=== PATIENT | male | born 1960 | race Caucasian/White ===

== ENCOUNTER → 2023-04-18 | Outpatient (CLI) | payer BC ==
--- NOTE | 2023-04-18 09:59 | MM ---
Reason for Exam: Clinical finding. Baseline mammogram. Patient History: Sister had breast cancer at or over age 50. Prior Study Comparison: Patient's first Mammogram. Tissue Density: The breast tissue is heterogeneously dense. This may lower the sensitivity of mammography. Findings: Analyzed By CAD. Extensive flame-shaped density throughout the central portion of the right breast with dendritic appearance suggesting extensive, asymmetric gynecomastia on the right. There may be minimal early changes of gynecomastia behind the left nipple. No significant mass or other discrete abnormality is seen. Overall Assessment: Incomplete: need additional imaging evaluation, BI-RAD 0 Management: Diagnostic Breast Ultrasound of the right breast. Electronically signed and approved by: Arpit Valdivia M.D. Radiologist
--- NOTE | 2023-04-18 10:39 | USB ---
Reason for Exam: Clinical finding. Patient History: Sister had breast cancer at or over age 50. Findings: The whole breast of the right breast, the axilla of the right breast and the retroareolar of both breasts were scanned. A complete US of all four quadrants of the breast , axilla, and retro-areolar region were reviewed. Images of the subareolar left breast for comparison purposes. No solid or cystic masses are identified. There is subareolar gynecomastia noted on the right. Overall Assessment: Benign, BI-RAD 2 Management: Clinical Management of the right breast in 1 year. For benign gynecomastia on the right. Results were given to the patient verbally at the time of exam. Electronically signed and approved by: Arpit Valdivia M.D. Radiologist
== END | disposition home or self-care (01) ==
LOC: RADMAMWWP 09:17
PROVIDERS: ATTEND Family Medicine
DX: N63.10 Unspecified lump in the right breast, unspecified quadrant (principal); N62 Hypertrophy of breast; N64.4 Mastodynia; Z80.3 Family history of malignant neoplasm of breast
CPT/HCPCS: 77062; 77066

== ENCOUNTER → 2023-11-14 | Outpatient (CLI) | payer BC ==
[2023-11-14 11:20] VITALS: BP 127/60; PULSE 84; RESP 16; TEMP 97.5
--- NOTE | 2023-11-14 11:43 | P.GSHP ---
History of Present Illness H&P Date: 11/14/23 Chief Complaint: bilateral gynecomastia Ulisses is a 63 year old male with a complaint of breast pain. He had a bilateral mammogram on 04-18-23 which showed changes of gynecomastia bilateral greater on the right. This was confirmed on the right with ultrasound on 04-18-23. Site has increased in size and both sides are painful but the right is more painful than the left. This started about 1 year ago. He does not smoke marijuana, and has never smoked it. He has not changed his medications. He does not complain of any testicular lumps. Caffiene: 1 20 oz/day nicotine: stopped 3 years ago used to smoke 1 pack per day and a half started at 15 Family History: father: kidney cancer of this sister: of cancer ? type second sister: of cancer ? type 3rd sister of cancer: ? type Surgical History: all teeth removed infected left wrist Medical History: diabetes high cholesterol Social History: nicotine: as above alcohol: none drugs: none - Constitutional Constitutional: Denies chills, Denies fever - EENT Eyes: denies blurred vision, denies pain Ears: bilateral: decreased hearing Ears, nose, mouth and throat: Denies headache, Denies sore throat - Breasts Breasts: bilateral: as per HPI - Cardiovascular Cardiovascular: Denies chest pain, Denies shortness of breath - Respiratory Respiratory: Denies cough, Denies 7 - Gastrointestinal Gastrointestinal: Denies abdominal pain, Denies diarrhea, Denies nausea, Denies vomiting - Genitourinary (Male) Genitourinary: Denies dysuria, Denies hematuria - Musculoskeletal Musculoskeletal: Denies myalgias - Integumentary Integumentary: Denies pruritus, Denies rash - Neurological Neurological: Denies numbness, Denies weakness - Psychiatric Psychiatric: Denies anxiety, Denies depression - Endocrine Endocrine: Denies fatigue, Denies weight change - Hematologic/Lymphatic Comment: none - Allergic/Immunologic Allergic/Immunologic: Reports as per HPI Past Medical History Past Medical History: Diabetes Mellitus, Hyperlipidemia History of Any Multi-Drug Resistant Organisms: None Reported Past Surgical History: Orthopedic Surgery Additional Past Surgical History / Comment(s): LEFT WRIST SX Past Anesthesia/Blood Transfusion Reactions: No Reported Reaction Past Psychological History: No Psychological Hx Reported Smoking Status: Former smoker Medications and Allergies Home Medications Medication Instructions Recorded Confirmed Type Atorvastatin [Lipitor] 10 mg PO DAILY 11/14/23 11/14/23 History Allergies Allergy/AdvReac Type Severity Reaction Status Date / Time No Known Allergies Allergy Unverified 11/14/23 11:07 Surgical - Exam Vital Signs Temp Pulse Resp BP Pulse Ox 97.5 F L 84 16 127/60 95 11/14/23 11:09 11/14/23 11:09 11/14/23 11:09 11/14/23 11:09 11/14/23 11:09 - General no distress - Eyes normal ocular movement - Neck trachea midline - Respiratory normal respiratory effort - Cardiovascular Heart Sounds: normal: S1, S2 - Abdomen Abdomen: soft, non tender, no guarding, no rigid, no rebound - Genitourinary no testicular masses - Integumentary normal turgor - Musculoskeletal normal gait - Psychiatric oriented to time, oriented to person, oriented to place, speech is normal, memory intact Breast examination: Inspection: Right breast is larger than left breast Palpation: Right breast: Firm nodularity and an upper areolar complex consistent with gynecomastia, tender to palpation, no other dominant masses or nodules of concern Right axilla: No adenopathy of concern Left breast: Firm nodularity underneath the areolar complex consistent with gynecomastia, no dominant masses or nodules of concern otherwise smaller than the right side Left axilla: No adenopathy of concern. Testicular exam: No nodules or masses of concern on either testicle Results Mammogram and ultrasound reviewed Assessment and Plan Assessment: Impression: Bilateral probable symptomatic gynecomastia right greater than left Plan: bilateral core biopsies to confirm gynecomastia testosterone level, estrogen level CC: Dr. Alcala
== END ==
LOC: WWCWWP 10:38
PROVIDERS: ATTEND Surgery
DX: E11.9 Type 2 diabetes mellitus without complications (principal); E78.00 Pure hypercholesterolemia, unspecified

== ENCOUNTER → 2023-12-04 | Day surgery (SDC) | payer BC ==
--- NOTE | 2023-12-09 09:07 | MM ---
Reason for Exam: Post Procedure Mammogram. Last screening mammogram was performed 8 month(s) ago. Patient History: Sister had breast cancer at or over age 50. Prior Study Comparison: 04/18/2023 Bilateral MG 3D diag mammo w/cad RITA, [facility]. 04/18/2023 Right US breast RT, [facility]. Tissue Density: The breast tissue is heterogeneously dense. This may lower the sensitivity of mammography. Pathology Description: Location: posterior, retroareolar. Marker Left Behind. Needle Type: Mammotome Cores: 4 Gauge: 13 Pathology Description: Location: posterior, retroareolar. Marker Left Behind. Needle Type: Mammotome Cores: 4 Gauge: 13 The procedure of ultrasound guided core biopsy was explained to the patient. Benefits, alternatives, and risks were discussed. An informed consent was then obtained. A timeout was performed. The patient was placed in supine positioning for imaging and for the procedure. The overlying skin was prepped and draped in usual sterile fashion. Lidocaine was used as anesthetic into the skin and subcutaneous tissue up to area of concern in the bilateral breasts. Left breast followed by the right breast was biopsied. Under ultrasound guidance, a 12-gauge vacuum assisted biopsy gun device was used to obtain 4 breast 4 left breast core samples. A biopsy clip was left in each breast at the biopsy site. Hydromark core marker was placed. Within the left breast this is a coil marker. Within the right breast this is a butterfly marker. The patient tolerated the procedure well without any immediate complication. The patient was kept in the radiology department for short stay after the procedure and then discharged home in stable condition. Postprocedure mammogram: The patient was transferred to mammography for physician ordered post procedure mammogram for clip placement verification. Impression: Successful ultrasound guided core biopsy of area of concern in the bilateral breasts, full pathology results to follow. Recommendations: 1. Recommendations are pending pathology results. Pathology Results: Result: Benign, Gynecomastia. A. RIGHT BREAST, POSTERIOR NIPPLE, NEEDLE CORE BIOPSY: Gynecomastia. B. LEFT BREAST, POSTERIOR NIPPLE, NEEDLE CORE BIOPSY: Gynecomastia. Overall Assessment: Benign Assessment: MG diagnostic mammo BI wo CAD - Bilateral: Benign, BI-RAD 2. Management: Clinical Management of both breasts. Electronically signed and approved by: Miguel New D.O. Radiologis
== END | disposition home or self-care (01) ==
LOC: RADUSWWP 10:34
PROVIDERS: ATTEND Surgery
DX: N62 Hypertrophy of breast (principal)
CPT/HCPCS: 88305; 77066; 19083; A4648

== ENCOUNTER → 2023-12-04 | Outpatient (CLI) | payer BC | END | disposition home or self-care (01) | LOC: LABWHC1 10:11 | PROVIDERS: ATTEND Surgery | DX: N62 Hypertrophy of breast (principal) | CPT/HCPCS: 36415; 82672; 84402; 84403 ==

== ENCOUNTER → 2023-12-12 | Outpatient (CLI) | payer BC ==
--- NOTE | 2023-12-12 15:03 | P.PN ---
Subjective Progress Note Date: 12/12/23 Principal diagnosis: bilateral gynecomastia bilateral gynecomastia Ulisses is a 63 year old male with a complaint of breast pain. He had a bilateral mammogram on 04-18-23 which showed changes of gynecomastia bilateral greater on the right. This was confirmed on the right with ultrasound on 04-18-23. Site has increased in size and both sides are painful but the right is more painful than the left. This started about 1 year ago. He does not smoke marijuana, and has never smoked it. He has not changed his medications. He does not complain of any testicular lumps. bilateral breast biospy on 12-04-23 gynecomastia testosterone: 179: range (86.98-780.10) estrogen: 101; range adult male (40-115) Caffiene: 1 20 oz/day nicotine: stopped 3 years ago used to smoke 1 pack per day and a half started at 15 Family History: father: kidney cancer of this sister: of cancer ? type second sister: of cancer ? type 3rd sister of cancer: ? type Surgical History: all teeth removed infected left wrist Medical History: diabetes high cholesterol Social History: nicotine: as above alcohol: none drugs: none - Constitutional Constitutional: Denies chills, Denies fever - EENT Eyes: denies blurred vision, denies pain Ears: bilateral: decreased hearing Ears, nose, mouth and throat: Denies headache, Denies sore throat - Breasts Breasts: bilateral: as per HPI - Cardiovascular Cardiovascular: Denies chest pain, Denies shortness of breath - Respiratory Respiratory: Denies cough - Gastrointestinal Gastrointestinal: Denies abdominal pain, Denies diarrhea, Denies nausea, Denies vomiting - Genitourinary (Male) Genitourinary: Denies dysuria, Denies hematuria - Musculoskeletal Musculoskeletal: Denies myalgias - Integumentary Integumentary: Denies pruritus, Denies rash - Neurological Neurological: Denies numbness, Denies weakness - Psychiatric Psychiatric: Denies anxiety, Denies depression - Endocrine Endocrine: Denies fatigue, Denies weight change - Hematologic/Lymphatic Comment: none - Allergic/Immunologic Allergic/Immunologic: Reports as per HPI Past Medical History Past Medical History: Diabetes Mellitus, Hyperlipidemia History of Any Multi-Drug Resistant Organisms: None Reported Past Surgical History: Orthopedic Surgery Additional Past Surgical History / Comment(s): LEFT WRIST SX Past Anesthesia/Blood Transfusion Reactions: No Reported Reaction Past Psychological History: No Psychological Hx Reported Smoking Status: Former smoker Medications and Allergies Home Medications Medication Instructions Recorded Confirmed Type Atorvastatin [Lipitor] 10 mg PO DAILY 11/14/23 11/14/23 History Allergies Allergy/AdvReac Type Severity Reaction Status Date / Time No Known Allergies Allergy Unverified 11/14/23 11:07 Objective - Constitutional General appearance: Present: cooperative - EENT Eyes: Present: EOMI ENT: Present: hearing grossly normal - Neck Neck: Present: normal ROM - Respiratory Respiratory: bilateral: CTA - Cardiovascular Heart sounds: normal: S1, S2 - Integumentary Integumentary Comment(s): bilateral biopsy sites clean and dry Integumentary: Present: normal turgor - Musculoskeletal Musculoskeletal: Present: gait normal - Psychiatric Psychiatric: Present: A&O x's 3, appropriate affect, intact judgment & insight Assessment and Plan Assessment: Impression: diabetes high cholesterol symptomatic gynecomastia Plan: He would like to have resection but not until May follow up in April, follow up sooner if any concerns CC: Dr. Alcala
== END ==
LOC: WWCWWP 14:10
PROVIDERS: ATTEND Surgery
DX: N62 Hypertrophy of breast (principal); N64.4 Mastodynia; E11.9 Type 2 diabetes mellitus without complications; E78.00 Pure hypercholesterolemia, unspecified; Z87.891 Personal history of nicotine dependence

== ENCOUNTER → 2024-04-10 | Outpatient (CLI) | payer BC ==
--- NOTE | 2024-04-10 12:24 | P.PN ---
Subjective Progress Note Date: 04/10/24 bilateral gynecomastia Ulisses is a 63 year old male with a complaint of breast pain. He had a bilateral mammogram on 04-18-23 which showed changes of gynecomastia bilateral greater on the right. This was confirmed on the right with ultrasound on 04-18-23. Site has increased in size and both sides are painful but the right is more painful than the left. This started about 1 year ago. He does not smoke marijuana, and has never smoked it. He has not changed his medications. He does not complain of any testicular lumps. Patient states since his last appointment both breast have increased in size and are sore. Bilateral ultrasound core biopsy of the breast on 12-04-2023 consistent with gynecomastia Caffiene: 1 20 oz/day nicotine: stopped 3 years ago used to smoke 1 pack per day and a half started at 15 Family History: father: kidney cancer of this sister: of cancer ? type second sister: of cancer ? type 3rd sister of cancer: ? type Surgical History: all teeth removed infected left wrist Medical History: diabetes high cholesterol Social History: nicotine: as above alcohol: none drugs: none - Constitutional Constitutional: Denies chills, Denies fever - EENT Eyes: denies blurred vision, denies pain Ears: bilateral: decreased hearing Ears, nose, mouth and throat: Denies headache, Denies sore throat - Breasts Breasts: bilateral: as per HPI - Cardiovascular Cardiovascular: Denies chest pain, Denies shortness of breath - Respiratory Respiratory: Denies cough - Gastrointestinal Gastrointestinal: Denies abdominal pain, Denies diarrhea, Denies nausea, Denies vomiting - Genitourinary (Male) Genitourinary: Denies dysuria, Denies hematuria - Musculoskeletal Musculoskeletal: Denies myalgias - Integumentary Integumentary: Denies pruritus, Denies rash - Neurological Neurological: Denies numbness, Denies weakness - Psychiatric Psychiatric: Denies anxiety, Denies depression - Endocrine Endocrine: Denies fatigue, Denies weight change - Hematologic/Lymphatic Comment: none - Allergic/Immunologic Allergic/Immunologic: Reports as per HPI Past Medical History Past Medical History: Diabetes Mellitus, Hyperlipidemia History of Any Multi-Drug Resistant Organisms: None Reported Past Surgical History: Orthopedic Surgery Additional Past Surgical History / Comment(s): LEFT WRIST SX Past Anesthesia/Blood Transfusion Reactions: No Reported Reaction Past Psychological History: No Psychological Hx Reported Smoking Status: Former smoker Medications and Allergies Home Medications Medication Instructions Recorded Confirmed Type Atorvastatin [Lipitor] 10 mg PO DAILY 11/14/23 11/14/23 History Allergies Allergy/AdvReac Type Severity Reaction Status Date / Time No Known Allergies Allergy Unverified 11/14/23 11:07 Objective - Constitutional General appearance: Present: cooperative - EENT Eyes: Present: EOMI ENT: Present: hearing grossly normal - Neck Neck: Present: normal ROM - Respiratory Respiratory: bilateral: CTA - Cardiovascular Heart sounds: normal: S1, S2 - Gastrointestinal General gastrointestinal: Present: soft - Integumentary Integumentary: Present: normal turgor - Musculoskeletal Musculoskeletal: Present: gait normal - Psychiatric Psychiatric: Present: A&O x's 3, appropriate affect, intact judgment & insight - Additional findings Additional findings: Breast examination: Inspection: Right breast is larger than left breast Palpation: Right breast: Firm nodularity and an upper areolar complex consistent with gynecomastia, tender to palpation, no other dominant masses or nodules of concern Right axilla: No adenopathy of concern Left breast: Firm nodularity underneath the areolar complex consistent with gynecomastia, no dominant masses or nodules of concern otherwise smaller than the right side Left axilla: No adenopathy of concern. Testicular exam: No nodules or masses of concern on either testicle Assessment and Plan Assessment: Impression: Bilateral symptomatic gynecomastia right greater than left Plan: bilateral resection of gynecomastia functional assessment done: arm abduction test passed pre-op education given CC: Dr. Alcala
[2024-04-10 12:57] VITALS: BP 130/75; PULSE 91; RESP 17; TEMP 98.1
== END ==
LOC: WWCWWP 11:14
PROVIDERS: ATTEND Surgery
DX: N62 Hypertrophy of breast (principal); N64.4 Mastodynia; Z01.818 Encounter for other preprocedural examination; Z90.13 Acquired absence of bilateral breasts and nipples; Z87.891 Personal history of nicotine dependence

== ENCOUNTER → 2024-05-12 | Day surgery (SDC) | payer BC ==
[~2024-05-12] MED LIST: DEXTROSE 5%-0.45% NACL 1,000 ML IV SCH; HEPARIN SODIUM,PORCINE 5,000 UNIT/ML 1 ML VIAL SQ SCH; HYDROcodone/APAP 5-325MG 1 EACH TAB PO PRN; HYDROmorphone (PF) 1 MG/ML ONE; HYDROmorphone 0.5 MG/0.5 ML SYRINGE IVP PRN; HYDROmorphone 1 MG/ML 1 ML SYRINGE IVP PRN; KETAMINE HCL IN 0.9 % NACL 50 MG/5 ML SYRINGE ONE; LIDOCAINE 1% INJ 10MG/ML (20 ML MDV) ONE; MIDAZOLAM 2 MG/2 ML VIAL IV PRN; MIDAZOLAM 2 MG/2 ML VIAL ONE; NALOXONE 0.4 MG/ML 1 ML VIAL IV PRN; ONDANSETRON 4 MG/2 ML VIAL IVP PRN; PROPOFOL 10 MG/ML 20 ML VIAL IV ONE; SCOPOLAMINE 1 MG/72 HR PATCH TRANSDERM ONE; ePHEDrine 50 MG/ML 1 ML VIAL ONE; fentaNYL (PF) 50 MCG/ML 2 ML AMP ONE
[2024-05-12 07:47] LABS: Glucose,Whole Blood 120 mg/dL (70-110)
[2024-05-12] MEDS: ACETAMINOPHEN TAB 500 MG TAB PO PRN (07:57)
[2024-05-12] MEDS: DEXAMETHASONE SOD PHOSPHATE 4 MG/ML 1 ML VIAL IV ONE (07:58)
[2024-05-12] MEDS: ONDANSETRON 4 MG/2 ML VIAL IVP ONE (07:58)
[2024-05-12] MEDS: LACTATED RINGERS 1,000 ML IV SCH (07:59)
[2024-05-12] MEDS: HEPARIN SODIUM,PORCINE 5,000 UNIT/ML 1 ML VIAL SQ PRN (08:01)
[2024-05-12] MEDS: IV FLUID CONTINUATION 1,000 ML IV ONE (08:05)
[2024-05-12] MEDS: ceFAZolin 3 GM in SODIUM CHLORIDE 0.9% 100 ML IVPB PRN (09:12)
[2024-05-12] MEDS: LIDOCAINE 1% INJ 10MG/ML (10 ML MDV) SQ ONE ×2 (09:39)
--- NOTE | 2024-05-12 11:27 | P.BCAON ---
Date of Procedure: 05/12/24 Preoperative Diagnosis: Bilateral symptomatic gynecomastia Postoperative Diagnosis: Same Procedure(s) Performed: Bilateral mastectomies Anesthesia: LOGAN Surgeon: Natalia Hairston Estimated Blood Loss (ml): 10 IV fluids (ml): 500 Pathology: other (Bilateral breast) Condition: stable Disposition: floor Indications for Procedure: Bilateral symptomatic gynecomastia Operative Findings: Dense breast tissue Description of Procedure: The patient was taken to the operating room and following induction of anesthesia both breast were prepped and draped in a sterile fashion. The left breast was approached initially. Markings for a mastectomy were placed in both the right and left breast in the preoperative area. The superior flap incision was formed. The superior flap was developed. Inferior flap incision was formed. The inferior flap was developed. The breast was dissected from medial to lateral off the pectoralis muscle. The breast was removed. A short suture was placed superiorly and a long suture was placed laterally. The wound was well irrigated. After we are sure that hemostasis was attained Surgicel in powder form was placed. A #10 MIRIAM drain was placed and secured using a nylon suture. Interrupted 3-0 Vicryl's were placed. 3-0 Vicryl running subcutaneous suture was placed. A 4-0 Monocryl subcuticular suture was placed. The area of the right breast was approached. Markings for the mastectomy had been placed preoperatively. The superior flap incision was formed. The superior flap was developed. The inferior flap incision was formed. The inferior flap was developed. The breast was dissected from medial to lateral off the pectoralis muscle. The breast was removed. A superior suture was placed which was short and a long suture was placed laterally. The wound was well irrigated. After we are sure that hemostasis was attained Surgicel in powder form was placed. #10 MIRIAM drain was placed and secured using a nylon suture. Interrupted 3-0 Vicryl sutures were placed. 3-0 Vicryl running subcutaneous suture was placed. A 4-0 Monocryl subcuticular suture was placed. Following this 20 cc of 1% lidocaine were placed 10 cc in each chest wall incision. Surgical glue was placed. The patient tolerated the procedure in stable condition. - Sentinal Node Biopsy Operation performed with curative intent: Yes
[2024-05-12 11:48] VITALS: TEMP 97.2
[2024-05-12 12:28] LABS: Glucose,Whole Blood 142 mg/dL (70-110)
[2024-05-12 13:10] VITALS: RESP 12
[2024-05-12 13:38] VITALS: BP 115/73; PULSE 80
== END ==
LOC: OR 07:01 → 5NMEDONC 11:28
PROVIDERS: ATTEND Surgery
DX: N62 Hypertrophy of breast (principal); N60.32 Fibrosclerosis of left breast; N60.31 Fibrosclerosis of right breast; E11.9 Type 2 diabetes mellitus without complications; E78.00 Pure hypercholesterolemia, unspecified; Z87.891 Personal history of nicotine dependence; Z79.899 Other long term (current) drug therapy
CPT/HCPCS: 88305; 88307; 19300; J2250; J1644; J1100; J0690; J2405; J2001 ×2; J3010; J1170; J2704

== ENCOUNTER → 2024-05-13 | Outpatient (CLI) | payer BC ==
--- NOTE | 2024-05-13 12:26 | P.PN ---
Subjective Progress Note Date: 05/13/24 Principal diagnosis: POD #1 bilateral mastectomy Ulisses is a 63 year old male status post bilateral mastecomy on 05-12-24 for bilateral symptomatic gynecomastia. He is doing well postoperatively with good pain control. Examination: Incisions clean and dry bilateral MIRIAM output minimal serosanguineous in nature Plan: Teach drain care Follow-up next week
[2024-05-13 12:43] VITALS: BP 139/88; PULSE 81; RESP 17; TEMP 98.1
== END ==
LOC: WWCWWP 11:41
PROVIDERS: ATTEND Surgery
DX: N62 Hypertrophy of breast (principal); Z90.13 Acquired absence of bilateral breasts and nipples

== ENCOUNTER → 2024-05-18 | Outpatient (CLI) | payer BC ==
--- NOTE | 2024-05-18 10:13 | P.BCPO ---
Progress Note - Text Progress Note Date: 05/18/24 Ulisses is a 63 year old male status post a bilateral mastectomy with bilateral gynecomastia on 05-12-2024. He has done well postoperatively. He has 40 cc/day draining from the right MIRIAM drain. He has approximately 10 cc/day draining from the left MIRIAM drain. Examination: Lungs: Clear Heart: Regular rate and rhythm Incision clean and dry bilaterally Impression: Patient doing well postoperatively Plan: Remove left MIRIAM drain Remove right MIRIAM drain in 1 week/follow-up 1 week Post Op Education - Post Op Education Post Op Education Provided Date: 05/18/24 - Functional Assessment Performed?: Yes (arm abduction test passed) Referal Provided?: No Path Report - Was patient given path report? Path Report Date Given: 05/18/24
[2024-05-18 10:33] VITALS: BP 123/73; PULSE 77; RESP 16; TEMP 97.7
== END ==
LOC: WWCWWP 10:00
PROVIDERS: ATTEND Surgery
DX: N62 Hypertrophy of breast (principal); Z90.13 Acquired absence of bilateral breasts and nipples

== ENCOUNTER → 2024-05-26 | Outpatient (CLI) | payer BC ==
--- NOTE | 2024-05-26 12:10 | P.CON ---
Consult Note - . Consult date: 05/26/24 Assessment/Plan:: 05/18/24 Ulisses is a 63 year old male status post a bilateral mastectomy with bilateral gynecomastia on 05-12-2024. He has done well postoperatively. He has 40 cc/day draining from the right MIRIAM drain. He has approximately 10 cc/day last week and that MIRIAM was removed. Examination: Lungs: Clear Heart: Regular rate and rhythm Incision clean and dry bilaterally; seroma left chest wall Impression: Patient doing well postoperatively Plan: Remove right MIRIAM drain MIRIAM drain Aspiration seroma left chest wall Following informed consent the area of concern was prepped using alcohol. An 18-gauge needle 20 cc syringe was used to aspirate fluid from the left chest wall. It was serous in nature and approximately 140 cc with complete resolution of the seroma. Plan: Follow-up on Saturday for reevaluation of left chest wall seroma and to evaluate for possible right chest wall seroma as the MIRIAM is going to be removed from the site secondary to irritation at the MIRIAM site and minimal MIRIAM output
[2024-05-26 13:04] VITALS: BP 110/73; PULSE 81; RESP 16; TEMP 98.1
== END ==
LOC: WWCWWP 11:31
PROVIDERS: ATTEND Surgery
DX: N62 Hypertrophy of breast (principal); L76.82 Other postprocedural complications of skin and subcutaneous tissue; Z90.13 Acquired absence of bilateral breasts and nipples

== ENCOUNTER → 2024-05-29 | Outpatient (CLI) | payer BC ==
--- NOTE | 2024-05-29 15:23 | P.CON ---
Consult Note - . Consult date: 05/29/24 Assessment/Plan:: 05/29/24 Ulisses is a 63 year old male status post a bilateral mastectomy with bilateral gynecomastia on 05-12-2024. He has done well postoperatively. Examination: Lungs: Clear Heart: Regular rate and rhythm Incision clean and dry bilaterally; minimal seroma fluid bilaterally Impression: Patient doing well postoperatively Plan: Follow-up next week
[2024-05-29 15:29] VITALS: BP 158/77; PULSE 99; RESP 16; TEMP 98.7
== END ==
LOC: WWCWWP 13:48
PROVIDERS: ATTEND Surgery
DX: N62 Hypertrophy of breast (principal); L76.82 Other postprocedural complications of skin and subcutaneous tissue; Z90.13 Acquired absence of bilateral breasts and nipples

== ENCOUNTER → 2024-06-03 | Outpatient (CLI) | payer BC ==
--- NOTE | 2024-06-03 13:32 | P.CON ---
Consult Note - . Consult date: 06/03/24 Assessment/Plan:: 06-03-24 Ulisses is a 63 year old male status post a bilateral mastectomy with bilateral gynecomastia on 05-12-2024. He has done well postoperatively. Examination: Lungs: Clear Heart: Regular rate and rhythm Incision clean and dry bilaterally; seroma fluid bilaterally Impression: Patient doing well postoperatively Aspiration of bilateral seroma Following informed consent the area of the right chest wall was prepped using alcohol. An 18-gauge needle on a 20 cc syringe was used to aspirate a seroma. It was inserted into the pocket of fluid and 104 cc of straw-colored fluid was removed. Following this the left breast was approached. The seroma was also identified there. The area was cleaned using alcohol. An 18-gauge needle on a 20 cc syringe was inserted into the pocket of fluid. 115 cc of straw-colored fluid was removed. There was complete resolution of both seromas. The patient tolerated the procedure in stable condition. Plan: Follow-up next week
== END ==
LOC: WWCWWP 13:04
PROVIDERS: ATTEND Surgery
DX: N62 Hypertrophy of breast (principal); N64.89 Other specified disorders of breast; L76.33 Postprocedural seroma of skin and subcutaneous tissue following a dermatologic procedure; Z90.13 Acquired absence of bilateral breasts and nipples

== ENCOUNTER → 2024-06-10 | Outpatient (CLI) | payer BC ==
--- NOTE | 2024-06-10 22:36 | CTL ---
EXAMINATION TYPE: CT Low Dose Lung DATE OF EXAM ORDERED: 06/10/2024 HISTORY: . Lung cancer screening CT DLP: [address] CTDI: 2.6 mGy Automated exposure control for dose reduction was used. SCREENING VISIT: COMPARISON: TECHNIQUE: Low dose computed tomography scan was performed through the chest at 1 mm thick sections a nd reconstructed images in the coronal plane at [address] DIAGNOSTIC QUALITY: Satisfactory FINDINGS: LUNG NODULES: Present, detailed below: 1. Right apical nodule measuring 0.5 cm. Series 4 image 43. 2. 0.4 cm calcification posterior lateral right upper lung field. Series 4 image 97. 3. There appear 0.5 cm nodules within the anterior right lung. Series 4 image 152. LUNGS: COPD: Severity: There may be some chronic bronchitis and possible mild bronchiectasis Fibrosis: Severity: None Lymph nodes: None Other findings: None RIGHT PLEURAL SPACE: Effusion: None Calcification: None Thickening: None Pneumothorax: None LEFT PLEURAL SPACE: Effusion: None Calcification: None Thickening: None Pneumothorax: None HEART: Other: Ascending thoracic aorta at the level the main pulmonary artery measures 3.1 cm. The main pul monary artery at the bifurcation measures 2.5 cm. Heart Size: Normal Coronary calcification: None Pericardial effusion: None OTHER FINDINGS: Upper abdomen: Normal Bony thorax: Normal Supraclavicular region: Normal IMPRESSION: 1. Bilateral lung nodules. Short-term follow-up recommended in 3-[address] CHEST RECOMMENDATION: Follow up CT chest in 3-[address] LUNG RAD: Lung-Rad 3 Probably Benign
== END | disposition home or self-care (01) ==
LOC: RADCTMAIN 07:32
PROVIDERS: ATTEND Family Medicine
DX: Z12.2 Encounter for screening for malignant neoplasm of respiratory organs (principal); R91.8 Other nonspecific abnormal finding of lung field; Z87.891 Personal history of nicotine dependence
CPT/HCPCS: 71271

== ENCOUNTER → 2024-06-19 | Outpatient (CLI) | payer BC ==
[2024-06-19 09:07] VITALS: BP 134/75; PULSE 79; RESP 16; TEMP 98.1
--- NOTE | 2024-06-19 09:39 | P.CON ---
Consult Note - . Consult date: 06/19/24 Assessment/Plan:: 06-19-24 Ulisses is a 63 year old male status post a bilateral mastectomy with bilateral gynecomastia on 05-12-2024. He has done well postoperatively. Examination: Lungs: Clear Heart: Regular rate and rhythm Incision clean and dry bilaterally; seroma fluid bilaterally Impression: Patient doing well postoperatively Aspiration of bilateral seroma Following informed consent the area of the right chest wall was prepped using alcohol. An 18-gauge needle on a 20 cc syringe was used to aspirate a seroma. It was inserted into the pocket of fluid and 120 cc of straw-colored fluid was removed. Following this the left breast was approached. The seroma was also identified there. The area was cleaned using alcohol. An 18-gauge needle on a 60 cc syringe was inserted into the pocket of fluid. There was complete resolution of both seromas. The patient tolerated the procedure in stable condition. Plan: Follow-up 2 weeks
== END ==
LOC: WWCWWP 08:55
PROVIDERS: ATTEND Surgery
DX: N62 Hypertrophy of breast (principal); L76.33 Postprocedural seroma of skin and subcutaneous tissue following a dermatologic procedure; N64.89 Other specified disorders of breast; Z90.13 Acquired absence of bilateral breasts and nipples

== ENCOUNTER 2025-05-28 15:17 | Emergency (ER) | payer BC ==
[2025-05-28 15:39] VITALS: TEMP 98.3
--- NOTE | 2025-05-28 16:03 | ED ---
General Adult HPI - General Chief complaint: Skin/Abscess/Foreign Body Stated complaint: Wound on abd Source: patient Mode of arrival: ambulatory Limitations: no limitations - History of Present Illness Initial comments: Dictation was produced using [employer] dictation software. please excuse any grammatical, word or spelling errors. 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 The cutting wheel exploded and cut him in the belly. Patient denies any abdominal symptoms except for a laceration to his abdomen. The ROS documented in this emergency department record has been reviewed and confirmed by me. Those systems with pertinent positive or negative responses have been documented in the HPI. All other systems are other negative and/or noncontributory. - Related Data Home Medications Medication Instructions Recorded Confirmed Cholecalciferol (Vitamin D3) 100 mcg PO DAILY 05/08/24 06/19/24 [Vitamin D3 (50 Mcg = 2000 Iu)] [facility] 3 1 tab PO DAILY 05/08/24 06/19/24 Previous Rx's Medication Instructions Recorded Cephalexin [Keflex] 500 mg PO Q6HR 5 Days #20 cap 05/28/25 Allergies Allergy/AdvReac Type Severity Reaction Status Date / Time No Known Allergies Allergy Verified 06/19/24 09:05 Review of Systems ROS Statement: Those systems with pertinent positive or pertinent negative responses have been documented in the HPI. ROS Other: All systems not noted in ROS Statement are negative. Past Medical History Past Medical History: Diabetes Mellitus, Hyperlipidemia History of Any Multi-Drug Resistant Organisms: None Reported Past Surgical History: Orthopedic Surgery Additional Past Surgical History / Comment(s): LEFT WRIST SX Past Anesthesia/Blood Transfusion Reactions: No Reported Reaction Past Psychological History: No Psychological Hx Reported Smoking Status: Former smoker Past Alcohol Use History: None Reported Past Drug Use History: None Reported General Exam - General Exam Comments Initial Comments: PHYSICAL EXAM: General Impression: Alert and oriented x3, not in acute distress HEENT: Normocephalic atraumatic, extra-ocular movements intact, pupils equal and reactive to light bilaterally, mucous membranes moist. Cardiovascular: Heart regular rate and rhythm Chest: Able to complete full sentences, no retractions, no tachypnea Abdomen: abdomen soft, non-tender, non-distended, no organomegaly, left abdominal wall laceration with no exposed bowel. Exposed fatty tissue. Wound was probed with no penetration Musculoskeletal: Pulses present and equal in all extremities, no peripheral edema Motor: no focal deficits noted Neurological: CN II-XII grossly intact, no focal motor or sensory deficits noted Skin: Intact with no visualized rashes Psych: Normal affect and mood Limitations: no limitations Course Vital Signs 05/28/25 15:35 Temperature 98.3 F Pulse Rate 80 Respiratory 16 Rate Blood Pressure 102/69 O2 Sat by Pulse 90 L Oximetry Procedures - Laceration Laceration #1 Consent Obtained: verbal consent Indication: laceration Site: abdomen Description: linear Anesthetic Used: lidocaine 1% Anesthesia Technique: local infiltration Pre-repair: wound explored, irrigated extensively Size of Sutures: other (misti) Number of Sutures: 10 Technique: other Complications: other Patient Tolerated Procedure: well Medical Decision Making - Medical Decision Making Was pt. sent in by a medical professional or institution (, PA, CHEESE GRADER, urgent care, hospital, or penitentiary...) When possible be specific @ -No Did you speak to anyone other than the patient for history (EMS, parent, family, police, friend...)? What history was obtained from this source @ -No Did you review nursing and triage notes (agree or disagree)? Why? @ -I reviewed and agree with nursing and triage notes Were old charts reviewed (outside hosp., previous admission, EMS record, old EKG, old radiological studies, urgent care reports/EKG's, penitentiary records)? Report findings @ -No old charts were reviewed Differential Diagnosis (chest pain, altered mental status, abdominal pain women, abdominal pain men, vaginal bleeding, musculoskeletal, weakness, fever, dyspnea, syncope, headache, dizziness, GI bleed, back pain, seizure, CVA, palpatations, mental health)? @ -Penetrating abdominal injury, abdominal laceration, abdominal contusion EKG interpreted by me (3pts min.). @ -None done X-rays interpreted by me (1pt min.). @ -None done CT interpreted by me (1pt min.). @ -CT ab pelvis shows no acute processes U/S interpreted by me (1pt. min.). @ -None done What testing was considered but not performed or refused? (CT, X-rays, U/S, labs)? Why? @ -None What meds were considered but not given or refused? Why? @ -None Was smoking cessation discussed for >3mins.? @ -No Were there social determinants of health that impacted care today? How? (Homelessness, low income, unemployed, alcoholism, drug addiction, transportation, low edu. Level, literacy, decrease access to med. care, senior care, rehab)? @ -No Was there de-escalation of care discussed even if they declined (Discuss DNR or withdrawal of care, Hospice)? DNR status @ -No What co-morbidities impacted this encounter? (DM, HTN, Smoking, COPD, CAD, Cancer, CVA, ARF, Chemo, Hep., AIDS, mental health diagnosis, sleep apnea, morbid obesity)? @ -None Was patient admitted / discharged? Hospital course, mention meds given and route, prescriptions, significant lab abnormalities, going to OR and other pertinent info. @ -64-year-old male with abdominal laceration. CT abdomen pelvis ordered to rule out penetrating abdominal injury. Vital signs stable. Examination benign. Tetanus updated. Laceration repaired see procedure note above. Patient discharged told to have misti removed in 10 days Did you discuss the management of the patient with other professionals (professionals i.e. , PA, CHEESE GRADER, lab, RT, psych nurse, social media project manager, dishroom attendant, teacher, transit authority police officer, ed case manager)? Give summary @ -No Was critical care preformed (if so, how long)? @ -No Undiagnosed new problem with uncertain prognosis? @ -No Drug Therapy requiring intensive monitoring for toxicity (Heparin, Nitro, Insulin, Cardizem)? @ -No Were any procedures done? @ -No Diagnosis/symptom? Acute, or Chronic, or Acute on Chronic? Uncomplicated (without systemic symptoms) or Complicated (systemic symptoms)? @ -Abdominal laceration Side effects of treatment? @ -No Exacerbation, Progression, or Severe Exacerbation? @ -No Poses a threat to life or bodily function? How? (Chest pain, [place], [place], pneumonia, PE, COPD, DKA, ARF, appy, cholecystitis, CVA, Diverticulitis, Homicidal, Suicidal, threat to staff... and all critical care pts) @ -No - Lab Data Result diagrams: 05/28/25 15:59 05/28/25 15:59 Lab Results 0605/28/25 05/28/25 Range/Units 15:59 15:59 15:59 WBC 11.28 H (4.50-10.00) 10*3/uL RBC 4.66 (4.40-5.60) 10*6/uL Hgb 15.1 (13.0-17.0) g/dL Hct 44.4 (39.6-50.0) % MCV 95.3 (80.0-97.0) fL MCH 32.4 H (27.0-32.0) pg MCHC 34.0 (32.0-37.0) g/dL Plt Count 240 (140-440) 10*3/uL MPV 10.7 (9.5-12.2) fL Immature Gran % (Auto) 0.6 % Neutrophils % 66.9 % Lymphocytes % 23.1 % Monocytes % 7.4 % Eosinophils % 1.3 % Basophils % 0.7 % Immature Gran # 0.07 H (0.00-0.04) 10*3/uL Neutrophils # 7.53 (1.80-7.70) 10*3/uL Lymphocytes # 2.61 (0.90-5.00) 10*3/uL Monocytes # 0.84 (0.20-1.00) 10*3/uL Eosinophils # 0.15 (0.04-0.35) 10*3/uL Basophils # 0.08 (0.00-0.10) 10*3/uL PT 9.9 L (10.0-12.5) sec INR 0.9 (<1.2) APTT 24.2 (22.0-30.0) sec Sodium 138 (137-145) mmol/L Potassium 3.9 (3.5-5.1) mmol/L Chloride 106 (98-107) mmol/L Carbon Dioxide 24 (22-30) mmol/L Anion Gap 8 mmol/L BUN 19 (9-20) mg/dL Creatinine 1.10 (0.66-1.25) mg/dL Est GFR (CKD-EPI)AfAm 82 (>60 ml/min/1.73 sqM) Est GFR (CKD-EPI)NonAf 71 (>60 ml/min/1.73 sqM) Glucose 106 H (74-99) mg/dL Calcium 9.4 (8.4-10.2) mg/dL Total Bilirubin 0.6 (0.2-1.3) mg/dL AST 28 (17-59) U/L ALT 29 (4-49) U/L Alkaline Phosphatase 137 H (38-126) U/L Total Protein 7.2 (6.3-8.2) g/dL Albumin 4.4 (3.5-5.0) g/dL Disposition Clinical Impression: Laceration of abdominal wall Disposition: HOME SELF-CARE Condition: Good Instructions (If sedation given, give patient instructions): Laceration (ED) Additional Instructions: staple removal in 7-10 days Prescriptions: Cephalexin [Keflex] 500 mg PO Q6HR 5 Days #20 cap Is patient prescribed a controlled substance at d/c from ED?: No Referrals: Naya Alcala MD [Primary Care Provider] - 1-2 days Time of Disposition: 17:51
[2025-05-28 16:18] LABS: Basophils # (A) 0.08 10*3/uL (0.00-0.10); Basophils % (A) 0.7 %; Eosinophils # (A) 0.15 10*3/uL (0.04-0.35); Eosinophils % (A) 1.3 %; HCT 44.4 % (39.6-50.0); HGB 15.1 g/dL (13.0-17.0); Lymphocytes # (A) 2.61 10*3/uL (0.90-5.00); Lymphocytes % (A) 23.1 %; MCH 32.4 pg (27.0-32.0); MCV 95.3 fL (80.0-97.0); Mean Platelet Volume 10.7 fL (9.5-12.2); Monocytes # (A) 0.84 10*3/uL (0.20-1.00); Monocytes % (A) 7.4 %; Neutrophils # (A) 7.53 10*3/uL (1.80-7.70); Neutrophils % (A) 66.9 %; Platelet Count 240 10*3/uL (140-440); RBC 4.66 10*6/uL (4.40-5.60); RDW 14.2 % (11.5-14.5); WBC 11.28 10*3/uL (4.50-10.00)
[2025-05-28 16:29] LABS: ALT 29 U/L (4-49); AST 28 U/L (17-59); African American GFR (CKD) 82 (>60 ml/min/1.73 sqM); Albumin 4.4 g/dL (3.5-5.0); Alkaline Phosphatase 137 U/L (38-126); Anion Gap 8 mmol/L; Blood Urea Nitrogen 19 mg/dL (9-20); Calcium 9.4 mg/dL (8.4-10.2); Carbon Dioxide 24 mmol/L (22-30); Chloride 106 mmol/L (98-107); Glucose 106 mg/dL (74-99); Non-African American GFR(CKD) 71 (>60 ml/min/1.73 sqM); Potassium 3.9 mmol/L (3.5-5.1); Sodium 138 mmol/L (137-145); Total Bilirubin 0.6 mg/dL (0.2-1.3); Total Protein 7.2 g/dL (6.3-8.2)
[2025-05-28 16:30] LABS: INR 0.9 (<1.2); Partial Thromboplastin Time 24.2 sec (22.0-30.0); Prothrombin Time 9.9 sec (10.0-12.5)
--- NOTE | 2025-05-28 16:50 | CT ---
EXAMINATION TYPE: CT abdomen pelvis w con DATE OF EXAM: 05/28/2025 4:34 PM COMPARISON: None available. CLINICAL INDICATION: Male, 64 years old with history of puncture wound to left abdomen with external grinder e xplod; pt grinding wheel explode puncture to left mid quad 6 cm with oozing blood. TECHNIQUE: Axial CT abdomen pelvis w con;Sagittal and coronal reformats were created on a separate w orkstation. Contrast used:100 ml mL of Isovue 300 with IV Contrast, (none if empty) Oral contrast used: without Oral Contrast (none if empty) CT DLP: 2263.3 mGycm, Automated exposure control for dose reduction was used. FINDINGS: LOWER CHEST: Unremarkable ABDOMEN LIVER: Unremarkable GALLBLADDER AND BILE DUCTS: Unremarkable. PANCREAS: Unremarkable. SPLEEN: Unremarkable. ADRENAL GLANDS: Unremarkable. KIDNEYS AND URETERS: No evidence of hydronephrosis or renal calculus. The ureters are unremarkable. PELVIS BLADDER: No evidence for wall thickening or mass given limitations of exam. REPRODUCTIVE: Unremarkable. ABDOMEN & PELVIS STOMACH AND BOWEL: Stomach and duodenum are unremarkable. No evidence of bowel obstruction. PERITONEUM/RETROPERITONEUM: No evidence of pneumoperitoneum or free fluid. VASCULATURE: No evidence of aortic aneurysm. MUSCULOSKELETAL: No acute osseous abnormalities LYMPH NODES: No gross evidence for lymphadenopathy. SOFT TISSUE/ABDOMINAL WALL: Superficial wound defect in the left anterior abdominal wall (34/110). Ti ny fat-containing periumbilical hernia. IMPRESSION: Superficial wound defect in the left anterior abdominal wall. Otherwise, no additional evidence of an acute traumatic abnormality in the abdomen/pelvis. [facility], , 05/28/2025 4:48 PM
[2025-05-28] MEDS ORDERED: LIDOCAINE 2%-EPI 1:100,000 20 ML VIAL SQ STA (16:53)
[2025-05-28] MEDS: CEPHALEXIN 500MG STARTER PACK 4 CAP BTL PO STA (18:15)
[2025-05-28] MEDS: DIPH,PERTUS(ACELL)TETVAC-LF 0.5 ML VIAL IM ONE (18:18)
[2025-05-28 18:29] VITALS: BP 110/74; PULSE 82; RESP 20
== END 2025-05-28 18:20 | disposition home or self-care (01) ==
LOC: EC 15:17
DX: S31.119A Laceration without foreign body of abdominal wall, unspecified quadrant without penetration into peritoneal cavity, initial encounter (principal); Z87.891 Personal history of nicotine dependence; Z23 Encounter for immunization; W26.8XXA Contact with other sharp object(s), not elsewhere classified, initial encounter
CPT/HCPCS: 36415; 80053; 85025; 85610; 85730; 74177; 90715; 99283; 90471; 12001; Q9967